=== PATIENT | female | born 1940 ===

== ENCOUNTER 2020-05-06 13:02 | Inpatient (IN) | payer MEDICARE, OTHER ==
[2020-05-06] MEDS ORDERED: Ondansetron ODT 4 MG TAB PO PRN (17:07)
[2020-05-06] MEDS ORDERED: Acetaminophen 325 MG TAB PO PRN (17:07)
[2020-05-06] MEDS ORDERED: Ondansetron PF 4 MG/2 ML Vial IVP PRN (17:07)
[2020-05-06] MEDS ORDERED: hydrALAZINE 20 MG/ML VIAL SLOW IVP PRN (17:07)
[2020-05-06] MEDS: Sodium Chloride 0.9% 1,000 ML IV SCH (18:26)
[2020-05-06] MEDS: Famotidine 20 MG TAB PO SCH (20:46)
--- NOTE | 2020-05-06 23:04 | HP ---
PRIMARY CARE PHYSICIAN: Out of town. CHIEF COMPLAINT: "I'm so nauseated I can't keep anything down." HISTORY OF PRESENT ILLNESS: Ms. Bergman is a very pleasant 80-year-old female, who has a history of hypertension as well as breast cancer. She says she has had metastatic breast cancer for 25 years and gets treatment at [facility]. She says that she has been doing fine until about 12 days ago. She says she started feeling "sick." She says that her symptoms were primarily low-grade fever and poor appetite. 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 She said she tried to get an appointment with her primary care physician, but they were only doing virtual visits. She says that she did get a virtual visit this past and says that she had noted some dysuria and polyuria along with the generalized weakness and low-grade temperature. As a result, they called in Bactrim for her. She says she started taking the Bactrim on Wednesday, but had to stop on Wednesday because she says she only took it for 2 days and says that she got extremely nauseated. She says she was not vomiting but could not eat anything. Then, her appetite continued to be poor and the nausea was fairly persistent. She got to the point where she was so dizzy she could barely "go." She went to the emergency room at [facility] where they did an evaluation. They found that her serum sodium level was low at 121. They did a rapid COVID screen and it was positive, and because of the hyponatremia and the COVID positive status, she was transferred to our facility for further evaluation. The patient was given a liter of fluids as well as some Zofran at the [facility] ER, and she says that she feels much better now, and in fact says that her appetite has improved, that she actually wants to try to eat something this evening. She denies any cough or congestion. She denies any diarrhea or loose stools and otherwise prior to she says "12 days ago," she was feeling fine. REVIEW OF SYSTEMS: All systems were reviewed and are negative except for that mentioned in the history of present illness. PAST MEDICAL HISTORY: Significant for hypertension as well as breast cancer. PAST SURGICAL HISTORY: She has had either lumpectomy or mastectomy. ALLERGIES: NO KNOWN ALLERGIES. SOCIAL HISTORY: She is a former smoker. Denies any alcohol use. FAMILY HISTORY: No history of any heritable diseases. CURRENT MEDICATIONS: She says she is taking 10 mg of Bystolic. She says she takes Cozaar. She believes that the 100 mg a day. She says she knows for sure there is no diuretic in the Cozaar and she also takes an IM injection, she says, for breast cancer, but she is not sure of the name. PHYSICAL EXAMINATION: GENERAL: She is alert and oriented. She appears to be in no acute distress. She is well developed and well nourished. VITAL SIGNS: Blood pressure is 151/80, heart rate 58, respiratory rate of 18, temperature is 98.2, and O2 saturation is 98% on room air. HEENT: Pupils are equal, round, and reactive. Extraocular muscles are intact. Her sclerae are anicteric. Throat, there is no erythema, no exudates. NECK: No adenopathy. No bruits. LUNGS: Clear to auscultation. There is no wheezing, no rales, no rhonchi. CARDIOVASCULAR: She has a normal S1 and S2. I did not appreciate an S3 or S4. No murmurs, clicks, no rubs. ABDOMEN: Obese. It is soft, nontender, and nondistended. Positive for bowel sounds. No rebound. No guarding. No organomegaly. EXTREMITIES: There is no clubbing, cyanosis. No edema. No calf tenderness. No joint effusions. NEUROLOGIC: Muscle strength 5/5 in both her upper and lower extremities. SKIN AND INTEGUMENT: There are no skin changes. No rash. LABORATORY RESULTS: Reviewed from the [facility] ER and her white blood cell count was 4.6, hemoglobin 10.7, hematocrit is 30.6, and platelet count is 277. Sodium 122, potassium 4.5, chloride is 88, CO2 is 20, BUN of 14, creatinine 0.9, glucose is 102. Her urinalysis was essentially negative. Chest x-ray was reported as having no evidence of any infiltrates. ASSESSMENT: This is a 80-year-old female, who presents to the hospital with generalized malaise and fatigue as well as nausea. She was found to be COVID positive and also have hyponatremia. 1. With regard to the hyponatremia, this is likely due to volume depletion as the patient admits to very poor oral intake over the last couple of days. We will start her with IV saline and recheck her serum sodium in the a.m. If it is not improving as expected, then we will go ahead and get urine and serum osmolality and a urine sodium to help to define the etiology. 2. COVID-19 infection. The patient is pretty clear that she believes the first day that she became symptomatic was the Wednesday before last and she says that was 12 days ago. She says that her worse symptoms were early on. She says she had a fever as high as 102, but that has since improved and it is possible that the nausea was more than likely related to the Bactrim as she started to have those symptoms after the administration of the antibiotics. Therefore, it appears as if she is having a relatively mild course. We will go ahead and check her inflammatory markers, specifically with regard to the D-dimer to see whether or not she is at risk for thrombosis, and even if she goes home the following day, these will at least be a baseline set of lab results if she would need to be readmitted later. Otherwise, if the patient's serum sodium has improved and she does not have any significant decompensation overnight, then likely she can be discharged home in a day or two. Job ID: [id number]
[2020-05-07 04:09] VITALS: BMI 28.7
[2020-05-07] MEDS: Sodium Chloride 0.9% 1,000 ML IV SCH ×2 (04:14→13:16)
[2020-05-07 05:58] LABS: #Eosinphils 0.1 thou/uL (0.0-0.7); #Lymphocytes 0.9 thou/uL (1.20-3.40); #Monocytes 0.6 thou/uL (0.11-0.59); #Neutrophils 2.5 thou/uL (1.40-6.50); %Basophils 0.8 % (0.0-1.0); %Eosinophils 2.1 % (0.0-10.0); %Monocytes 13.5 % (0.0-10.0); %Neutrophils 60.6 % (42.0-75.0); Hemoglobin 10.9 g/dL (12.0-16.0); Mean Corpuscular HGB CONC 33.9 g/dL (32.0-36.0); Mean Corpuscular Hemoglobin 30.3 pg (27.0-31.0); Mean Corpuscular Volume 89.3 fL (78.0-98.0); Mean Platelet Volume 6.8 fL (7.4-10.4); Platelet Count 244 thou/uL (130-400); RBC Distribution Width 11.9 % (11.5-14.5); Red Blood Cell (RBC) Count 3.62 mill/uL (4.20-5.40); White Blood Cell (WBC) Count 4.1 thou/uL (4.8-10.8)
[2020-05-07 06:24] LABS: Anion Gap 13 mmol/L (10-20); BUN (Urea Nitrogen) 13 mg/dL (9.8-20.1); CRP (Inflammatory) 0.57 mg/dL (= or < 0.5); Calc. Creatinine Clearance 80 mL/min (70-130); Carbon Dioxide 18 mmol/L (23-31); Chloride 101 mmol/L (98-107); Estimated GFR-MDRD 77; Glucose 86 mg/dL (83-110); Potassium 4.4 mmol/L (3.5-5.1); Sodium 128 mmol/L (136-145)
[2020-05-07] MEDS: Famotidine 20 MG TAB PO SCH (08:32)
[2020-05-07] MEDS ORDERED: Nebivolol HCl 5 MG TAB PO SCH (09:00)
[2020-05-07] MEDS ORDERED: Enoxaparin Sodium 40 MG/0.4 ML SYRINGE SC SCH (09:00)
[2020-05-07] MEDS ORDERED: Losartan 25 MG TAB PO SCH (09:00)
--- NOTE | 2020-05-07 09:31 | PDOC.HOSPP ---
- Subjective Encounter Date: 05/07/20 Encounter Time: : Subjective: Ms. Bergman was seen today in follow-up of hyponatremia, and COVID infection. She says she feels much better. She was able to eat all of her dinner, and breakfast this morning. She says she even wants more. - Objective Vital Signs & Weight: Vital Signs (12 hours) Temp Pulse Resp BP Pulse Ox 05/07/20 03:39 98 F 69 16 138/69 96 05/07/20 00:28 98.3 F 72 16 147/67 H 97 Weight Weight 178 lb Result Diagrams: 05/07/20 05:28 05/07/20 05:28 Hospitalist ROS - Medication Medications: Active Medications Generic Name Dose Route Start Last Admin Trade Name Freq PRN Reason Stop Dose Admin Enoxaparin Sodium 40 mg 05/07/20 09:00 05/07/20 08:32 Enoxaparin Sodium 40 Mg/0.4 Ml Syringe SC 40 mg 0900 LASHAWN Administration Famotidine 20 mg 05/06/20 21:00 05/07/20 08:32 Famotidine 20 Mg Tab PO 20 mg BID LASHAWN Administration Sodium Chloride 1,000 mls @ 100 mls/hr 05/06/20 17:15 05/07/20 04:14 Normal Saline 0.9% IV 1,000 mls .Q10H LASHAWN Administration Losartan Potassium 100 mg 05/07/20 09:00 05/07/20 08:32 Losartan 25 Mg Tab PO 100 mg DAILY LASHAWN Administration Nebivolol 10 mg 05/07/20 09:00 05/07/20 08:32 Nebivolol Hcl 5 Mg Tab PO 10 mg DAILY LASHAWN Administration - Exam Eye: PERRL, anicteric sclera Heart: RRR, no murmur, no gallops, no rubs, normal peripheral pulses Respiratory: CTAB, no wheezes, no rales, no ronchi, normal chest expansion, no tachypnea Gastrointestinal: soft, non-tender, non-distended, normal bowel sounds, no palpable masses, no hepatomegaly Extremities: no cyanosis, no edema Hosp A/P (1) COVID-19 virus infection Code(s): U07.1 - COVID-19 Status: Acute (2) Hyponatremia Code(s): E87.1 - HYPO-OSMOLALITY AND HYPONATREMIA Status: Acute (3) Breast cancer Status: Chronic (4) Hypertension Code(s): I10 - ESSENTIAL (PRIMARY) HYPERTENSION Status: Chronic - Plan * Hyponatremia- likely due to poor oral intake. She is responding nicely to IV saline * Will re-check her BMP and if the trend is continuing, than can discharge home * COVID infection- very mild systems, and low inflammatory marker level,s as well as D Dimer * HTN- stable * Breast Cancer- stable * Hopefully home today
[2020-05-07 09:54] VITALS: BP 137/79; TEMP 98
[2020-05-07 12:46] LABS: Anion Gap 12 mmol/L (10-20); BUN (Urea Nitrogen) 12 mg/dL (9.8-20.1); Calc. Creatinine Clearance 81 mL/min (70-130); Calcium 8.1 mg/dL (7.8-10.44); Carbon Dioxide 21 mmol/L (23-31); Chloride 100 mmol/L (98-107); Estimated GFR-MDRD 78; Glucose 79 mg/dL (83-110); Potassium 4.1 mmol/L (3.5-5.1); Sodium 129 mmol/L (136-145)
--- NOTE | 2020-05-07 23:48 | DIS ---
DATE OF ADMISSION: 05/06/2020 DATE OF DISCHARGE: 05/07/2020 DISCHARGE DISPOSITION: Home. DISCHARGE DIAGNOSES: 1. Hyponatremia. 2. Persistent nausea. 3. Adverse effect of Bactrim DS. 4. COVID-19 infection. 5. Breast cancer. 6. Hypertension. DISCHARGE MEDICATIONS: 1. Sephadex 500 mg IM every four weeks. 2. Cozaar 100 mg daily. 3. Bystolic 10 mg daily. CODE STATUS: Full code. ALLERGIES: TO THE CODEINE, AMLODIPINE, DOXAZOSIN, LATEX, NATURAL RUBBER, LISINOPRIL AND RAMIPRIL. HOSPITAL COURSE: Ms. Bergman is a pleasant 80-year-old female, who came to the emergency room after she was extremely weak and was having persistent nausea. She had been diagnosed as having a urinary tract infection via a tele visit and was prescribed Bactrim. Shortly after taking the Bactrim, she began having severe nausea and very poor oral intake. By the time she was seen in the emergency room, she was found to be hyponatremic and also incidentally diagnosed with COVID-19 infection. She was admitted and placed in isolation. Her COVID-19 infection was very mild. She had a D-dimer as well as inflammatory markers checked, which were low. She believes she is at least 12-13 days out from infection. She says that she had noticed a low-grade infection and fatigue at least a week and a half ago. It is likely that the hyponatremia was due to poor oral intake and side effect of the Bactrim. After she had discontinued this and she was placed on IV fluids, the sodium began to correct, and at discharge, her sodium was 129, and she was tolerating a solid diet, was completely asymptomatic with regard to the COVID-19 infection, and was subsequently discharged home. Job ID: [id number]
== END 2020-05-07 16:54 | disposition home or self-care (01) | DRG 640 ==
LOC: T4-B 13:02
PROVIDERS: ADMIT Internal Medicine; ATTEND Internal Medicine
PROC: 8E0ZXY6 Isolation (ICD-10-PCS; principal; 2020-05-06)
DX: E87.1 Hypo-osmolality and hyponatremia (principal); U07.1 COVID-19; R11.2 Nausea with vomiting, unspecified; T36.8X5A Adverse effect of other systemic antibiotics, initial encounter; E86.9 Volume depletion, unspecified; C50.919 Malignant neoplasm of unspecified site of unspecified female breast; I10 Essential (primary) hypertension; Z88.8 Allergy status to other drugs, medicaments and biological substances; Z91.040 Latex allergy status; Z88.6 Allergy status to analgesic agent; Z87.891 Personal history of nicotine dependence
CPT/HCPCS: 36415; 80048; 82728; 85025; 85379; 86140; J1650